=== PATIENT | female | born 1950 | race Caucasian/White ===

== ENCOUNTER → 2018-02-20 | Outpatient (CLI) | payer MEDICARE ==
[2018-02-20 10:48] LABS: Blood Urea Nitrogen 21 mg/dL (7-17)
--- NOTE | 2018-02-20 15:19 | CT ---
EXAMINATION TYPE: CT urogram wo/w con DATE OF EXAM: 02/20/2018 COMPARISON: NONE INDICATION: Microscopic hematuria. DLP: 1423.9 mGycm, Automated exposure control for dose reduction was used. CONTRAST: 100 mL of Isovue M300. Study performed without Oral Contrast TECHNIQUE: Axial images were obtained from above the diaphragm to the pubic rami in the axial plane a t 5 mm thick sections. Reconstructed images are reviewed on the computer in the coronal plane. FINDINGS: Limited CT sections are obtained the lung bases. The lung bases are clear. CT ABDOMEN: Liver: Normal Spleen: Normal Pancreas: Normal Adrenal glands: The adrenal glands are normal. Gallbladder: Normal Kidneys: Multiphase imaging postcontrast performed. Precontrast imaging is performed. No masses are e vident. No hydronephrosis is present. No cysts are present. Delayed images were obtained through t he kidneys, which remain unremarkable. Three-D reconstructed images performed separately by the technologist on the [employer] computer are film ed and presented. There is symmetrical contrast to the bilateral kidneys. Excretion into the renal calyces and infundib ulum and into the pelvis appear normal. The ureters follow a normal caliber course and contour to the urinary bladder. Urinary bladder is incompletely filled with contrast is limited postcontrast imagin g. Aorta: Vascular calcification is within the aorta. Inferior vena cava: Normal. CT PELVIS: Loops of bowel within the abdomen and pelvis are normal. Study is without oral contrast limiting the evaluation of loops of bowel. Appendix: Normal as visualized. Urinary bladder: Normal. Genitourinary structures: Uterus and adnexal regions appear unremarkable. Osseous structures: No suspicious lytic or sclerotic lesions. IMPRESSIONS: 1. Normal CT abdomen pelvis. 2. Kidneys and excretory system is visualized appears normal
== END | disposition home or self-care (01) ==
LOC: RADCTMAIN 10:17
PROVIDERS: ATTEND Internal Medicine
DX: R31.29 Other microscopic hematuria (principal)
CPT/HCPCS: 82565; 84520; 74178; 36415; 74400; Q9967

== ENCOUNTER 2020-11-30 10:56 | Observation (INO) | payer MEDICARE ==
[2020-11-30 11:40] LABS: Basophils # (A) 0.1 k/uL (0-0.2); Basophils % (A) 1 %; Eosinophils # (A) 0.1 k/uL (0-0.7); Eosinophils % (A) 2 %; HCT 41.5 % (34.0-46.0); Lymphocytes # (A) 1.2 k/uL (1.0-4.8); Lymphocytes % (A) 24 %; MCH 31.5 pg (25.0-35.0); MCHC 33.7 g/dL (31.0-37.0); MCV 93.4 fL (80.0-100.0); Monocytes # (A) 0.4 k/uL (0-1.0); Monocytes % (A) 8 %; Neutrophils # (A) 3.2 k/uL (1.3-7.7); Neutrophils % (A) 62 %; Platelet Count 188 k/uL (150-450); RBC 4.44 m/uL (3.80-5.40); WBC 5.1 k/uL (3.8-10.6)
--- NOTE | 2020-11-30 11:41 | ED ---
General Adult HPI - General Chief complaint: Recheck/Abnormal Lab/Rx Stated complaint: PCP sent for +Stress test Time Seen by Provider: 11/30/20 11:05 Source: patient Mode of arrival: wheelchair Limitations: no limitations - History of Present Illness Initial comments: 70-year-old female presents to the emergency room for a chief complaint of "needing heart cath." Patient reports she was sent in by her primary care doctor. Patient reports that she had a routine EKG performed 3 weeks ago for her annual physical. States that it was abnormal. Therefore a stress test was ordered and patient states it was positive. Patient's primary care doctor at tempted to get her in to cardiology but apparently was unable to do so. Patient was sent to the emergency room for admission to see cardiology. Patient denies any symptoms associated. Denies chest pain shortness of breath nausea diaphoresis. Patient denies history of hypercholesterolemia, hypertension, diabetes or smoking. She does have a positive family history as her father had a heart attack around 60-65 years old.Patient has no other complaints at this time including shortness of breath, chest pain, abdominal pain, nausea or vomiting, headache, or visual changes. - Related Data Home Medications Medication Instructions Recorded Confirmed Cholecalciferol (Vitamin D3) 250 mcg PO DAILY 11/30/20 11/30/20 [Vitamin D3 (5000 Iu)] Allergies Allergy/AdvReac Type Severity Reaction Status Date / Time No Known Allergies Allergy Verified 11/30/20 11:53 Review of Systems ROS Statement: Those systems with pertinent positive or pertinent negative responses have been documented in the HPI. ROS Other: All systems not noted in ROS Statement are negative. Past Medical History Past Medical History: No Reported History History of Any Multi-Drug Resistant Organisms: None Reported Past Surgical History: Orthopedic Surgery Additional Past Surgical History / Comment(s): Right ankle sx Past Psychological History: No Psychological Hx Reported Smoking Status: Never smoker Past Alcohol Use History: None Reported Past Drug Use History: None Reported General Exam Limitations: no limitations General appearance: alert Head exam: Present: atraumatic, normocephalic, normal inspection Eye exam: Present: normal appearance, PERRL, EOMI. Absent: scleral icterus ENT exam: Present: normal exam, mucous membranes moist Neck exam: Present: normal inspection, full ROM. Absent: tenderness Respiratory exam: Present: normal lung sounds bilaterally. Absent: respiratory distress, wheezes Cardiovascular Exam: Present: regular rate, normal rhythm, normal heart sounds GI/Abdominal exam: Present: soft, normal bowel sounds. Absent: distended, tenderness Neurological exam: Present: alert Course Vital Signs 11/30/20 10:57 Temperature 98.5 F Pulse Rate 110 H Respiratory 18 Rate Blood Pressure 150/76 O2 Sat by Pulse 99 Oximetry - Reevaluation(s) Reevaluation #1: 11/30/20 11:41 Requested stress test and EKG be sent over by Dr. rodriguez's office this was done at another facility. Exercise Stress Echo was reviewed from 11/08/20. This was abnormal with anterior wall hypokinesis at peak exercise consistent with anterior wall ischemia which improved with recovery. PVCs mostly seen in recovery. EKG Findings - EKG Comments: EKG Findings:: Sinus rhythm, ventricular rate 87, MD interval 134, QTC 423 Medical Decision Making - Medical Decision Making Vitals are stable. Patient is asymptomatic. EKG unremarkable, nonischemic. CBC CMP unremarkable. Chest x-ray shows no acute process. Patient did have a positive stress test with dyskinesia in the anterior wall. Dr. Davison spoke with Dr. Rodriguez, will admit patient with cardiology consultation. - Lab Data Result diagrams: 11/30/20 11:29 11/30/20 11:29 Lab Results 11/30/20 11/30/20 11/30/20 Range/Units 11:29 11:29 11:29 WBC 5.1 (3.8-10.6) k/uL RBC 4.44 (3.80-5.40) m/uL Hgb 14.0 (11.4-16.0) gm/dL Hct 41.5 (34.0-46.0) % MCV 93.4 (80.0-100.0) fL MCH 31.5 (25.0-35.0) pg MCHC 33.7 (31.0-37.0) g/dL RDW 12.0 (11.5-15.5) % Plt Count 188 (150-450) k/uL MPV 9.0 Neutrophils % 62 % Lymphocytes % 24 % Monocytes % 8 % Eosinophils % 2 % Basophils % 1 % Neutrophils # 3.2 (1.3-7.7) k/uL Lymphocytes # 1.2 (1.0-4.8) k/uL Monocytes # 0.4 (0-1.0) k/uL Eosinophils # 0.1 (0-0.7) k/uL Basophils # 0.1 (0-0.2) k/uL PT 10.1 (9.0-12.0) sec INR 0.9 (<1.2) APTT 22.4 (22.0-30.0) sec Sodium 137 (137-145) mmol/L Potassium 4.3 (3.5-5.1) mmol/L Chloride 103 (98-107) mmol/L Carbon Dioxide 27 (22-30) mmol/L Anion Gap 7 mmol/L BUN 13 (7-17) mg/dL Creatinine 0.75 (0.52-1.04) mg/dL Est GFR (CKD-EPI)AfAm >90 (>60 ml/min/1.73 sqM) Est GFR (CKD-EPI)NonAf 82 (>60 ml/min/1.73 sqM) Glucose 114 H (74-99) mg/dL Calcium 9.7 (8.4-10.2) mg/dL Magnesium 2.1 (1.6-2.3) mg/dL Total Bilirubin 0.5 (0.2-1.3) mg/dL AST 30 (14-36) U/L ALT 16 (4-34) U/L Alkaline Phosphatase 85 (38-126) U/L Troponin I (0.000-0.034) ng/mL NT-Pro-B Natriuret Pep pg/mL Total Protein 7.5 (6.3-8.2) g/dL Albumin 4.4 (3.5-5.0) g/dL 11/30/20 11/30/20 Range/Units 11:29 11:29 WBC (3.8-10.6) k/uL RBC (3.80-5.40) m/uL Hgb (11.4-16.0) gm/dL Hct (34.0-46.0) % MCV (80.0-100.0) fL MCH (25.0-35.0) pg MCHC (31.0-37.0) g/dL RDW (11.5-15.5) % Plt Count (150-450) k/uL MPV Neutrophils % % Lymphocytes % % Monocytes % % Eosinophils % % Basophils % % Neutrophils # (1.3-7.7) k/uL Lymphocytes # (1.0-4.8) k/uL Monocytes # (0-1.0) k/uL Eosinophils # (0-0.7) k/uL Basophils # (0-0.2) k/uL PT (9.0-12.0) sec INR (<1.2) APTT (22.0-30.0) sec Sodium (137-145) mmol/L Potassium (3.5-5.1) mmol/L Chloride (98-107) mmol/L Carbon Dioxide (22-30) mmol/L Anion Gap mmol/L BUN (7-17) mg/dL Creatinine (0.52-1.04) mg/dL Est GFR (CKD-EPI)AfAm (>60 ml/min/1.73 sqM) Est GFR (CKD-EPI)NonAf (>60 ml/min/1.73 sqM) Glucose (74-99) mg/dL Calcium (8.4-10.2) mg/dL Magnesium (1.6-2.3) mg/dL Total Bilirubin (0.2-1.3) mg/dL AST (14-36) U/L ALT (4-34) U/L Alkaline Phosphatase (38-126) U/L Troponin I <0.012 (0.000-0.034) ng/mL NT-Pro-B Natriuret Pep 159 pg/mL Total Protein (6.3-8.2) g/dL Albumin (3.5-5.0) g/dL Disposition Clinical Impression: Abnormal stress electrocardiogram test Disposition: ADMITTED IP TO THIS HOSP Is patient prescribed a controlled substance at d/c from ED?: No Referrals: Brianna Rodriguez MD [Primary Care Provider] - 1-2 days Time of Disposition: 12:28
--- NOTE | 2020-11-30 11:50 | XR ---
EXAMINATION TYPE: XR chest 2V DATE OF EXAM: 11/30/2020 COMPARISON: None INDICATION: Chest pain TECHNIQUE: Frontal and lateral views of the chest are obtained. FINDINGS: The heart size is normal. The pulmonary vasculature is normal. The lungs are clear. IMPRESSION: 1. No acute pulmonary process.
[2020-11-30 11:51] LABS: INR 0.9 (<1.2); Partial Thromboplastin Time 22.4 sec (22.0-30.0); Prothrombin Time 10.1 sec (9.0-12.0)
[2020-11-30 11:56] LABS: ALT 16 U/L (4-34); AST 30 U/L (14-36); African American GFR (CKD) >90 (>60 ml/min/1.73 sqM); Albumin 4.4 g/dL (3.5-5.0); Alkaline Phosphatase 85 U/L (38-126); Anion Gap 7 mmol/L; Blood Urea Nitrogen 13 mg/dL (7-17); Calcium 9.7 mg/dL (8.4-10.2); Carbon Dioxide 27 mmol/L (22-30); Chloride 103 mmol/L (98-107); Glucose 114 mg/dL (74-99); Magnesium 2.1 mg/dL (1.6-2.3); Non-African American GFR(CKD) 82 (>60 ml/min/1.73 sqM); Potassium 4.3 mmol/L (3.5-5.1); Sodium 137 mmol/L (137-145); Total Bilirubin 0.5 mg/dL (0.2-1.3); Total Protein 7.5 g/dL (6.3-8.2)
[2020-11-30] MEDS ORDERED: ASPIRIN 81 MG PO STA (12:28)
[2020-11-30] MEDS ORDERED: ALPRAZolam 0.5 MG TAB PO PRN (14:18)
[2020-11-30] MEDS ORDERED: SODIUM CHLORIDE 0.9% 1,000 ML in EMPTY BAG 1 BAG IV ONE (14:18)
[2020-11-30] MEDS ORDERED: NITROGLYCERIN SL TABS 0.4 MG TAB SUBLINGUAL PRN (14:18)
[2020-11-30] MEDS ORDERED: ALPRAZolam 0.25 MG TAB PO PRN (14:18)
--- NOTE | 2020-11-30 14:34 | P.CRDCN ---
History of Present Illness Consult date: 11/30/20 History of present illness: CHIEF COMPLAINT: Abnormal stress test HISTORY OF PRESENT ILLNESS: This is a 70-year old female with no past significant medical history. 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 We have been asked to see the patient in consultation for abnormal stress test. Patient states that she went for her annual physical with her primary care physician, Dr. Rodriguez about 5 weeks ago. She states an EKG was completed at that time which showed some possible abnormalities and Dr. Rodriguez ordered a stress te st to be performed. Lesion underwent a stress echo at [facility] on 11/07/2020 revealing anterior wall hypokinesis at peak exercise consistent with anterior wall ischemia. Stress echocardiogram revealed an estimated ejection fraction of 50-55%. Patient states she was contacted by Dr. Rodriguez's office this morning and instructed to come to the emergency room due to her abnormal stress test. Patient denies any chest pain or pressure. She denies shortness of breath. Denies dizziness or lightheadedness. Denies cough or congestion. Denies fever or chills. Denies palpitations. Patient has a nonsmoker. She denies alcohol use. She states her dad had a history of coronary artery disease and had a stent placed when he was in his late 50s. She also reports he had an aortic aneurysm. DIAGNOSTICS: EKG reveals sinus mechanism with no signs of acute ischemia Chest xray negative for acute process Laboratory data: WBC 5.1. Hemoglobin 14.0. Platelet count 188. Sodium 137. Potassium 4.3. BUN 13. Creatinine 0.75. Magnesium 2.1. Troponin negative 1. BNP 159. Current home cardiac medications include none REVIEW OF SYSTEMS: At the time of my exam: CONSTITUTIONAL: Denies fever or chills. HEENT: Denies blurred vision, vision changes, or eye pain. Denies hemoptysis CARDIOVASCULAR: Denies chest pain, orthopnea, PND or palpitations RESPIRATORY: No shortness of breath. GASTROINTESTINAL: Denies abdominal pain. Denies nausea or vomiting. HEMATOLOGIC: Denies bleeding disorders. GENITOURINARY: Denies any blood in urine. SKIN: Denies pruitis. Denies rash. PHYSICAL EXAM: VITAL SIGNS: Reviewed. GENERAL: Well-developed in no acute distress. HEENT: Head is normocephalic. Pupils are equal, round. Sclerae anicteric. Mucous membranes of the mouth are moist. Neck supple. No JVD or thyromegaly LUNGS: Respirations even and unlabored. Lungs essentially clear to auscultation bilaterally. HEART: Regular rate and rhythm. S1 and S2 heard. ABDOMEN: Soft. Nondistended. Nontender. EXTREMITIES: Normal range of motion. No clubbing or cyanosis. Peripheral pulses intact. No lower extremity edema NEUROLOGIC: Awake and alert. Oriented x 3. ASSESSMENT: Abnormal stress test revealing anterior wall ischemia Family history of coronary artery disease PLAN: Obtain 2D echo to assess cardiac structure and function Patient will be evaluated by Dr. Saucedo this afternoon She is tentatively scheduled for cardiac catheterization tomorrow Further recommendations pending patient course Nurse practitioner note has been reviewed by physician. Signing provider agrees with the documented findings, assessment, and plan of care. Past Medical History Past Medical History: No Reported History Additional Past Medical History / Comment(s): Past vertigo, UTI History of Any Multi-Drug Resistant Organisms: None Reported Past Surgical History: Orthopedic Surgery Additional Past Surgical History / Comment(s): R ankle ORIF, R lower facial mass removal, colonoscopy Past Anesthesia/Blood Transfusion Reactions: No Reported Reaction Smoking Status: Never smoker - Past Family History Father Family Medical History: Coronary Artery Disease (CAD), Myocardial Infarction ([place]), Vascular Disorder Additional Family Medical History / Comment(s): Father had a [place] around age 60-65 yrs. He had cardiac stents. He had aortic aneurysms. Medications and Allergies Home Medications Medication Instructions Recorded Confirmed Type Cholecalciferol (Vitamin D3) 250 mcg PO DAILY 11/30/20 11/30/20 History [Vitamin D3 (5000 Iu)] Allergies Allergy/AdvReac Type Severity Reaction Status Date / Time No Known Allergies Allergy Verified 11/30/20 11:53 Physical Exam Vitals: Vital Signs Temp Pulse Pulse Resp BP BP Pulse Ox 11/30/20 13:53 98.1 F 106 H 20 134/84 96 11/30/20 13:40 98.1 F 106 H 20 134/84 96 11/30/20 13:21 98.5 F 89 18 136/80 99 11/30/20 13:02 89 18 136/80 99 11/30/20 12:02 93 18 127/71 99 11/30/20 10:57 98.5 F 110 H 18 150/76 99 Intake and Output 11/29/20 11/30/20 11/30/20 22:59 06:59 14:59 Other: Weight 76.204 kg Results 11/30/20 11:29 11/30/20 11:29 Cardiac Enzymes 11/30/20 11/30/20 Range/Units 11:29 11:29 AST 30 (14-36) U/L Troponin I <0.012 (0.000-0.034) ng/mL Coagulation 11/30/20 Range/Units 11:29 PT 10.1 (9.0-12.0) sec APTT 22.4 (22.0-30.0) sec CBC 11/30/20 Range/Units 11:29 WBC 5.1 (3.8-10.6) k/uL RBC 4.44 (3.80-5.40) m/uL Hgb 14.0 (11.4-16.0) gm/dL Hct 41.5 (34.0-46.0) % Plt Count 188 (150-450) k/uL Comprehensive Metabolic Panel 11/30/20 Range/Units 11:29 Sodium 137 (137-145) mmol/L Potassium 4.3 (3.5-5.1) mmol/L Chloride 103 (98-107) mmol/L Carbon Dioxide 27 (22-30) mmol/L BUN 13 (7-17) mg/dL Creatinine 0.75 (0.52-1.04) mg/dL Glucose 114 H (74-99) mg/dL Calcium 9.7 (8.4-10.2) mg/dL AST 30 (14-36) U/L ALT 16 (4-34) U/L Alkaline Phosphatase 85 (38-126) U/L Total Protein 7.5 (6.3-8.2) g/dL Albumin 4.4 (3.5-5.0) g/dL Current Medications Generic Name Dose Route Start Last Admin Trade Name Freq PRN Reason Stop Dose Admin Alprazolam 0.25 mg 11/30/20 14:18 Alprazolam 0.25 Mg Tab PO Q6HR PRN Mild Anxiety Alprazolam 0.5 mg 11/30/20 14:18 Alprazolam 0.5 Mg Tab PO Q6HR PRN Moderate Anxiety Aspirin 325 mg 12/01/20 07:00 Aspirin 325 Mg Tab PO 12/01/20 07:01 ONCE ONE Atorvastatin Calcium 80 mg 12/01/20 07:00 Atorvastatin 80 Mg Tab PO 12/01/20 07:01 ONCE ONE Sodium Chloride 1,000 ml/ IV 1,000 mls @ 76.204 mls/hr 11/30/20 14:18 Solution IV 12/01/20 03:25 .Q13H8M ONE 1 ML/KG/HR Heparin Sodium (Porcine) 10, 1,001 mls @ 999 mls/hr 12/01/20 07:00 000 unit/ Sodium Chloride IRRIGATION 12/01/20 23:00 ONCE PRN INTRA-OP Heparin Sodium (Porcine) 2,500 250.5 mls @ 250 mls/hr 12/01/20 07:00 unit/ Sodium Chloride IRRIGATION 12/01/20 23:00 ONCE PRN INTRA-OP Nitroglycerin 0.4 mg 11/30/20 14:18 Nitroglycerin Sl Tabs 0.4 Mg Tab SUBLINGUAL Q5M PRN Chest Pain Intake and Output 11/29/20 11/30/20 11/30/20 22:59 06:59 14:59 Other: Weight 76.204 kg Patient Weight 12/01/20 06:59 Weight 76.204 kg 11/30/20 11:29 11/30/20 11:29
[2020-11-30 19:51] VITALS: RESP 16
--- NOTE | 2020-12-01 06:04 | P.HPIM ---
History of Present Illness H&P Date: 11/30/20 Chief Complaint: Abnormal stress test This is a 70 year old female with no prior medical history had a recent physical with me and had an EKG that showed lots of ectopy, because of her family history of coronary artery disease, she was sent for stress echocardiogram that showed significant ischemia in the anterior wall and her EF was 55 %, therefore she was referred to the see but patient stated that she is planning to go to [place] next week , so she was asked to to go to the ER for evaluation by cardiology with left heart catherization in the [facility]. patient denies any chest pain or shortness of breath, she is a bit weaker than her norms , she denies any dizziness or lightheadedness, she has no nausea, vomiting or diarrhea, her 12-Leak EKG today showed normal sinus rhythm with occasional PVCs, CXR is normal as her labs. Review of Systems Constitutional: Reports fatigue, Reports weakness, Denies anorexia, Denies chronic headaches, Denies weight gain, Denies weight loss Eyes: denies blurred vision, denies bulging eye, denies decreased vision Ears, nose, mouth and throat: Denies dysphagia, Denies neck lump, Denies sore throat Cardiovascular: Denies chest pain, Denies decreased exercise tolerance, Denies dyspnea on exertion, Denies leg edema, Denies lightheadedness, Denies orthopnea, Denies rapid heart beat, Denies shortness of breath, Denies syncope Respiratory: Denies congestion, Denies cough with sputum, Denies home oxygen, Denies sleep apnea, Denies snoring, Denies wheezing Gastrointestinal: Denies abdominal pain, Denies excessive gas, Denies heartburn, Denies loss of appetite, Denies melena, Denies nausea, Denies vomiting Genitourinary: Denies dysuria, Denies nocturia Menstruation: Reports postmenopausal Musculoskeletal: Denies frequent falls, Denies gait dysfunction Musculoskeletal: right: ankle pain, ankle stiffness, absent: elbow pain, elbow stiffness, elbow swelling, foot pain, foot stiffness, foot swelling, hand pain, hand stiffness, hand swelling, hip pain, hip stiffness, hip swelling, knee pain, knee stiffness, knee swelling, shoulder pain, shoulder stiffness, shoulder swelling, wrist pain, wrist stiffness, wrist swelling Integumentary: Denies pruritus, Denies rash Neurological: Denies numbness, Denies weakness Psychiatric: Reports anxiety, Reports sadness/tearfulness, Denies depression, Denies sleep disturbances, Denies suicidal ideation Endocrine: Denies fatigue, Denies weight change Past Medical History Past Medical History: No Reported History (Father at the age of 90 but had CAD at 65 year old with PCI along with arotic aneurysm.) Additional Past Medical History / Comment(s): Past vertigo, UTI History of Any Multi-Drug Resistant Organisms: None Reported Past Surgical History: Orthopedic Surgery Additional Past Surgical History / Comment(s): R ankle ORIF, R lower facial mass removal, colonoscopy Past Anesthesia/Blood Transfusion Reactions: No Reported Reaction Smoking Status: Never smoker - Past Family History Father Family Medical History: Coronary Artery Disease (CAD), Myocardial Infarction ([place]), Vascular Disorder Additional Family Medical History / Comment(s): Father had a [place] around age 60-65 yrs. He had cardiac stents. He had aortic aneurysms. Mother Family Medical History: Cancer (Mother at the age of 70 from ovarian cancer) Brother(s) Family Medical History: No Reported History (Patient has 3 brothers with no health issues.) Daughter(s) Family Medical History: No Reported History (one daughter no health issues.) Son(s) Family Medical History: No Reported History (one son no health issues.) Medications and Allergies Home Medications Medication Instructions Recorded Confirmed Type Cholecalciferol (Vitamin D3) 250 mcg PO DAILY 11/30/20 11/30/20 History [Vitamin D3 (5000 Iu)] Allergies Allergy/AdvReac Type Severity Reaction Status Date / Time No Known Allergies Allergy Verified 11/30/20 11:53 Physical Exam Vitals: Vital Signs Temp Pulse Pulse Resp BP BP Pulse Ox 12/01/20 01:56 98.1 F 65 16 127/78 98 11/30/20 19:50 97.9 F 87 16 151/77 97 11/30/20 15:27 97 11/30/20 13:53 98.1 F 106 H 20 134/84 96 11/30/20 13:40 98.1 F 106 H 20 134/84 96 11/30/20 13:21 98.5 F 89 18 136/80 99 11/30/20 13:02 89 18 136/80 99 11/30/20 12:02 93 18 127/71 99 11/30/20 10:57 98.5 F 110 H 18 150/76 99 Intake and Output 11/30/20 11/30/20 12/01/20 14:59 22:59 06:59 Intake Total 914.4 Balance 914.4 Intake: Intake, IV Titration 914.4 Amount Sodium Chloride 0.9% 1, 914.4 000 ml In Empty Bag 1 bag @ 1 ML/KG/HR 76.204 mls/ hr IV .Q13H8M ONE Rx#: [id number] Other: Voiding Method Toilet Toilet # Voids 2 Weight 76.204 kg Physical examination: HEENT: head is atraumatic normocephalic pupils were equal round reactive to light and accommodations extra ocular muscle movements were intact, mucous membranes of the mouth are moist. Neck: supple no JVP. Chest : clear to auscultation bilaterally there is no carckles no wheezes, no chest wall tenderness or intercostal retractions. Heart: first heart sound is depressed second heart sound is normal there is no gallop or murmur. Abdomen: soft non tender non distended positive bowel sounds. Extremities: there is no edema no calf tenderness DP + 2 bilaterally. Neurologic examination: patient is awake alert and oriented X 3 CN II-XII are grossly intact , muscle power 5/5 in upper and lower extremities bilaterally, deep tendon reflexes are normal. Results CBC & Chem 7: 11/30/20 11:29 11/30/20 11:29 Labs: Abnormal Lab Results - Last 24 Hours (Table) 11/30/20 Range/Units 11:29 Glucose 114 H (74-99) mg/dL Thrombosis Risk Factor Assmnt - DVT/VTE Prophylaxis DVT/VTE Prophylaxis: Pharmacologic Prophylaxis ordered - Choose All That Apply Any of the Below Risk Factors Present?: Yes Other Risk Factors: Yes Each Risk Factor Represents 2 Points: Age 61-74 years Other congenital or acquired thrombophilia - If yes, enter type in comment: No Thrombosis Risk Factor Assessment Total Risk Factor Score: 2 Thrombosis Risk Factor Assessment Level: Low Risk Assessment and Plan Assessment: Assessment and plan: 1. Abnormal stress echo in patient with no prior history except for family history of CAD. patient will be maintained on heparin drip, ASA 325 mg orally daily and Lipitor 80 mg orally daily and she will be scheduled for left heart catherization with in AM. echocardiogram was ordered. 2. vitamin D deficiency. she will continue with vitamin D supplement. 3. Anxiety . we will start Xanax as needed. 4. DVT prophylaxis. on heparin drip. 5. GI prophylaxis. we will continue with protonix 40 mg orally daily. 6. admit as inpatient estimated length of stay 2 midnights. 7. Full code.
[2020-12-01 06:13] LABS: Glucose,Whole Blood 82 mg/dL (75-99)
[2020-12-01] MEDS ORDERED: ATORVASTATIN 80 MG TAB PO ONE (07:00)
[2020-12-01] MEDS ORDERED: HEPARIN SODIUM,PORCINE 2,500 UNIT in SODIUM CHLORIDE 0.9% 250 ML IRRIGATION PRN (07:00)
[2020-12-01] MEDS ORDERED: HEPARIN SODIUM,PORCINE 10,000 UNIT in SODIUM CHLORIDE 0.9% 1,000 ML IRRIGATION PRN (07:00)
[2020-12-01] MEDS ORDERED: ASPIRIN 325 MG TAB PO ONE (07:00)
[2020-12-01] MEDS ORDERED: PANTOPRAZOLE 40 MG TABLET PO SCH (07:30)
[2020-12-01] MEDS ORDERED: ASPIRIN 325 MG TAB PO SCH (09:00)
[2020-12-01 09:36] LABS: Chol/HDL Ratio 3.61; LDL Cholesterol,Calculated 143.8 mg/dL (0.0-131.0); VLDL Calculation 10.2 mg/dL (5.00-40.00)
[2020-12-01] MEDS ORDERED: fentaNYL (PF) 50 MCG/ML 2 ML AMP IVP ONE (11:50)
[2020-12-01] MEDS ORDERED: LIDOCAINE 1% INJ 10MG/ML (20 ML MDV) SQ ONE (11:53)
[2020-12-01] MEDS ORDERED: VERAPAMIL SYRINGE (5 MG/10 ML) INTRAARTER ONE (11:55)
[2020-12-01] MEDS ORDERED: IV FLUID CONTINUATION 700 ML IV ONE (11:56)
[2020-12-01] MEDS ORDERED: HEPARIN SODIUM 1,000 UN/ML (10ML VL) IV ONE (12:01)
[2020-12-01] MEDS ORDERED: RX INFO: IV CONTRAST WAS GIVEN 1 EACH MISC MISCELLANE PRN (12:11)
[2020-12-01] MEDS ORDERED: SODIUM CHLORIDE 0.9% 1,000 ML IV SCH (12:15)
--- NOTE | 2020-12-01 13:17 | CC ---
CARDIAC CATHETERIZATION REPORT Mrs. Paniagua 70-year-old female with no history of prior coronary artery disease who recently underwent a stress echocardiogram that was reported showing anterior wall ischemia. In view of that, recommendation was made regarding cardiac catheterization. The procedure, its risks and the complications were discussed with the patient with full understanding and agreement. PROCEDURE: The patient was brought to [employer] i lab[employer] in a fasting semi-sedated state after receiving fentanyl and Benadryl and achieving moderate conscious sedated state. Using Xylocaine anesthesia and Seldinger technique, a 6-Burkinan sheath was introduced in the right radial artery. Selective right and left coronary angiography performed using 5-Burkinan 3.5 bend right and left Javier catheter. Multiple views of the coronary artery including hemiaxial views were obtained. The right Javier was used to cross the aortic valve. Following that, catheter and sheath were removed. Hemostasis was obtained with deployment of TR band. There was no immediate complication. There patient was returned to room in stable condition. Of note, the patient received 4000 units of intravenous heparin as well as intra-arterial verapamil. FINDINGS: LEFT MAIN: This is a short size vessel, bifurcating into left circumflex, left anterior descending artery. Left main coronary artery has no evidence of high-grade stenosis. LEFT ANTERIOR DESCENDING ARTERY: This is a large-sized vessel giving rise to 2 diagonal branches, tortuous in the mid and distal segment, reaching toward the apex. The left anterior descending artery as well as branches have no evidence of obstructive coronary artery disease. LEFT CIRCUMFLEX: This is a nondominant vessel, large in caliber giving rise to 2 obtuse marginal branches. The first one is larger in caliber. The left circumflex as well as branches have no evidence of obstructive coronary artery disease. RIGHT CORONARY ARTERY: This is a large dominant vessel bifurcating into PDA and posterolateral segment and branches. The right coronary artery as well as branches have no evidence of obstructive coronary artery disease. LEFT VENTRICULOGRAM: The left ventriculogram is not performed. HEMODYNAMICS: There was no gradient across the aortic valve. The left ventricular end-diastolic pressure was 4-5 mmHg. CONCLUSION: 1. Normal coronary arteries. 2. Right dominance. RECOMMENDATIONS: In view of finding anatomy, I recommend to continue medical therapy with aggressive coronary risk modifications being initiated. Those findings and recommendation were discussed with the patient her family and they are in full understanding and agreement. Duration of sedation is 13 minutes. MMODL / IJN: [id number] /
--- NOTE | 2020-12-01 13:23 | LTR ---
December 01, 2020 Re: Lesli Siva Dear Dr. Rordiguez: I had the opportunity to perform cardiac catheterization on Mrs. Paniagua at [facility] on the 01 of December and a full copy of the procedure note will be forwarded to you. In brief, she was found to have no evidence of significant obstructive coronary artery disease and based on those findings, I recommend continuing present therapy. Thank you again for allowing me the opportunity to participate in her care. Please feel free to call for any questions. Sincerely yours, MD EBENEZER FordL / VANESSAN: [phone] /
--- NOTE | 2020-12-01 13:54 | ECHOF ---
Referral Reason:LV function MEASUREMENTS -------- HEIGHT: 172.7 cm WEIGHT: 76.2 kg BP: 127/78 RVIDd: 3.2 cm (< 3.3) IVSd: 1.0 cm (0.6 - 1.1) LVIDd: 4.4 cm (3.9 - 5.3) LVPWd: 1.0 cm (0.6 - 1.1) IVSs: 1.4 cm LVIDs: 3.1 cm LVPWs: 1.6 cm LA Diam: 3.2 cm (2.7 - 3.8) LAESV Index (A-L): 15.78 ml/m Ao Diam: 2.9 cm (2.0 - 3.7) AV Cusp: 2.0 cm (1.5 - 2.6) MV EXCURSION: 17.614 mm (> 18.000) MV EF SLOPE: 79 mm/s (70 - 150) EPSS: 0.5 cm MV E Delta: 0.64 m/s MV DecT: 345 ms MV A Delta: 0.64 m/s MV E/A Ratio: 1.00 RAP: 5.00 mmHg RVSP: 25.72 mmHg FINDINGS -------- Sinus rhythm. This was a technically adequate study. The left ventricular size is normal. Left ventricular wall thickness is normal. Overall left vent ricular systolic function is normal with, an EF between 55 - 60 %. The diastolic filling pattern is normal for the age of the patient 7.04. The right ventricle is normal in size. Normal LA size by volume 22+/-6 ml/m2. The right atrium is normal in size. The right atrial size is normal. Interatrial and interventricular septum intact. The aortic valve is trileaflet, and appears structurally normal. No aortic stenosis or regurgitation. The mitral valve is normal. There is trace to mild mitral regurgitation. The tricuspid valve appears structurally normal. Mild tricuspid regurgitation present. Right vent ricular systolic pressure is normal at < 35 mmHg. There is no pulmonic regurgitation present. The aortic root size is normal. Normal inferior vena cava with normal inspiratory collapse consistent with estimated right atrial pre ssure of 5 mmHg. There is no pericardial effusion. CONCLUSIONS -------- 1. Left ventricular wall thickness is normal. 2. Overall left ventricular systolic function is normal with, an EF between 55 - 60 %. 3. Normal LA size by volume 22+/-6 ml/m2. 4. The aortic valve is trileaflet, and appears structurally normal. No aortic stenosis or regurgitati on. 5. There is trace to mild mitral regurgitation. 6. Mild tricuspid regurgitation present. 7. There is no pericardial effusion. PHILOSOPHY FACULTY: Mili Uriarte RDCS
[2020-12-01 15:35] VITALS: TEMP 98.1
[2020-12-01 16:21] VITALS: BP 113/68; PULSE 72
[2020-12-02] MEDS ORDERED: ATORVASTATIN 40 MG TAB PO SCH (09:00)
--- NOTE | 2020-12-12 15:48 | P.DS ---
<Brianna Rodriguez - Last Filed: 12/07/20 15:29> Plan - Discharge Summary New Discharge Prescriptions: New Atorvastatin [Lipitor] 40 mg PO DAILY #30 tab Continue Cholecalciferol (Vitamin D3) [Vitamin D3 (5000 Iu)] 250 mcg PO DAILY Discharge Medication List Cholecalciferol (Vitamin D3) [Vitamin D3 (5000 Iu)] 250 mcg PO DAILY 11/30/20 [History] Atorvastatin [Lipitor] 40 mg PO DAILY #30 tab 12/01/20 [Rx] Follow up Appointment(s)/Referral(s): Donovan Saucedo MD [STAFF PHYSICIAN] - 1 Week (office will call pt with appointment ) Brianna Rodriguez MD [Primary Care Provider] - 1 Week Patient Instructions/Handouts: *[facility] - After Heart Catheterization - Security Director Instructions Discharge Disposition: HOME SELF-CARE <Amira Caldwell - Last Filed: 12/12/20 15:47> Providers Date of admission: 11/30/20 12:44 Expected date of discharge: 12/01/20 Attending physician: Brianna Rodriguez Consults: 11/30/20 12:28 Consult Physician Routine Consulting Provider: [facility] Consult Reason/Comments: abn stress test Do you want consulting provider notified?: Yes Primary care physician: Brianna Rodriguez Hospital Course: This is a 70 year old female with no prior medical history had a recent physical with me and had an EKG that showed lots of ectopy, because of her family history of coronary artery disease, she was sent for stress echocardiogram that showed significant ischemia in the anterior wall and her EF was 55 %, therefore she was referred to the see but patient stated that she is planning to go to [place] next week , so she was asked to to go to the ER for evaluation by cardiology with left heart catherization in the morning. patient denies any chest pain or shortness of breath, she is a bit weaker than her norms , she denies any dizziness or lightheadedness, she has no nausea, vomiting or diarrhea, her 12-Leak EKG today showed normal sinus rhythm with occasional PVCs, CXR is normal as her labs. 12/01: Cardiac catheterization performed by Dr. Saucedo revealed normal coronary arteries. Right dominance. Recommendations to continue medical therapy with aggressive coronary risk modifications. Patient was cleared by cardiology for discharge home. Atorvastatin was added to her home medication list. He was afebrile, heart rate 74, blood pressure 105/65, pulse ox 97% on room air. He shouldn't discharged home in stable condition. Discharge diagnoses: 1. Abnormal stress echo, coronary artery disease ruled out by heart catheterization. 2. Vitamin D deficiency. 3. Generalized anxiety disorder. Discharge plan: Home Impression and plan of care have been directed as dictated by the signing physician. Amira Caldwell nurse practitioner acting as scribe for signing physician. Plan - Discharge Summary Discharge Rx Participant: No
== END 2020-12-01 17:50 | disposition home or self-care (01) ==
LOC: EC 10:56 → 6NMEDSUR 12:44
PROVIDERS: ADMIT Internal Medicine; ATTEND Internal Medicine
DX: R94.39 Abnormal result of other cardiovascular function study (principal); E55.9 Vitamin D deficiency, unspecified; F41.1 Generalized anxiety disorder; I49.3 Ventricular premature depolarization; I71.9 Aortic aneurysm of unspecified site, without rupture; Z87.898 Personal history of other specified conditions; Z79.899 Other long term (current) drug therapy; Z98.890 Other specified postprocedural states; Z87.440 Personal history of urinary (tract) infections; Z82.49 Family history of ischemic heart disease and other diseases of the circulatory system; Z80.41 Family history of malignant neoplasm of ovary
CPT/HCPCS: 93005 ×2; 99285; 36415; 93306; 93458; 83880; 80061; 80053; 83735; 84484; 85025; 85610; 85730; 71046; G0378 ×2; C1769; C1894; J2001; J3010; J1644